=== PATIENT | male | born 1935 | race Caucasian/White ===

== ENCOUNTER 2016-09-14 06:37 | Outpatient (CLI) | payer MEDICARE, OTHER ==
[~2016-09-14] VITALS: Ht 185.4 cm; Wt 113.5 kg
[2016-09-14] MEDS ORDERED: OCUVITE TABLET1 TA1 PO (07:35)
[2016-09-14] MEDS ORDERED: PRAVASTATIN SOD10 MG PO (07:35)
[2016-09-14] MEDS ORDERED: FIBERCON625 MG PO (07:35)
[2016-09-14] MEDS ORDERED: NORVASC5 MG PO (07:35)
[2016-09-14] MEDS ORDERED: FLOMAX0.4 MG PO (07:36)
[2016-09-14] MEDS ORDERED: PROAIR HFA8.5 GM INH (07:36)
[2016-09-14 07:40] LABS: BASOPHILS 0.2 % (0-2); EOSINOPHILS 5.3 % (0-7); HEMATOCRIT 31.7 % (42.0-54.0); HEMOGLOBIN 10.3 g/dL (13.5-17.5); IMMATURE GRANULOCYTES 0.2 % (0-5); LYMPHOCYTES 21.7 % (15-50); MCH 29.9 pg (26.0-34.0); MCHC 32.5 g/dL (31.0-37.0); MCV 92.2 fL (80.0-100.0); MEAN PLATELET VOLUME 10.5 fL (7.4-10.4); MONOCYTES 6.8 % (2-11); NEUTROPHILS 65.8 % (40-80); PLATELET COUNT 222 10x3/uL (130-400); RBC 3.44 10x6/uL (4.20-6.10); RDW 13.1 % (11.5-14.5); WBC 8.7 10x3/uL (4.8-10.8)
[2016-09-14 07:41] VITALS: BP 139/74; BMI 33.0
[2016-09-14 07:49] LABS: ANION GAP 16.6 mmol/L (8-16); CALCIUM 8.3 mg/dL (8.5-10.1); CARBON DIOXIDE 23.7 mmol/L (21.0-32.0); CREATININE - SERUM 3.2 mg/dL (0.6-1.3); POTASSIUM - SERUM 4.3 mmol/L (3.5-5.1)
[2016-09-14 07:50] LABS: APTT 29.1 SECONDS (22.8-39.4); INR 1.15 (0.85-1.17); PROTIME 14.6 SECONDS (11.6-15.0)
--- NOTE | 2016-09-14 10:26 | NUR ---
TRANSFER FROM SPECIALS BY BED. VS WNL. DRSG TO RIGHT SIDE BACK CLEAN AND DRY. WILL CONT. PLAN OF CARE.
[2016-09-14 11:08] VITALS: BP 125/77; Ht 185.4 cm; Wt 113.5 kg
--- NOTE | 2016-09-14 14:12 | NUR ---
UP TO CHAIR. AT BS. CALL LIGHT IN REACH. WILL CONT. PLAN OF CARE.
[2016-09-14 15:13] VITALS: BP 116/68
[2016-09-14 19:00] VITALS: BP 134/70; BP 169/84
--- NOTE | 2016-09-14 19:56 | NUR ---
RESUMED CARE OF PT, LYING IN BED RESPIRATIONS EVEN AND UNLABORED ON ROOM AIR. RIGHT HAND SALINE LOCKED. AT BEDSIDE. URINE RACKED IN WINDOWSIL. LAST VOID CLEAR YELLOW. RIGHT BIOPSY SITE, C/D/I. NO NEEDS VOICED AT THIS TIME, CALL LIGHT IN REACH. WILL CONTINUE TO MONITOR. SEE NURSE ASSESSMENT.
[2016-09-15 05:20] LABS: BASOPHILS 0.4 % (0-2); EOSINOPHILS 7.1 % (0-7); HEMATOCRIT 27.7 % (42.0-54.0); IMMATURE GRANULOCYTES 0.4 % (0-5); LYMPHOCYTES 22.5 % (15-50); MCH 30.2 pg (26.0-34.0); MCHC 32.5 g/dL (31.0-37.0); MEAN PLATELET VOLUME 10.3 fL (7.4-10.4); MONOCYTES 7.3 % (2-11); NEUTROPHILS 62.3 % (40-80); PLATELET COUNT 194 10x3/uL (130-400); RBC 2.98 10x6/uL (4.20-6.10); RDW 13.3 % (11.5-14.5); WBC 7.9 10x3/uL (4.8-10.8)
[2016-09-15 05:35] LABS: ANION GAP 14.6 mmol/L (8-16); CARBON DIOXIDE 24.3 mmol/L (21.0-32.0); CREATININE - SERUM 3.4 mg/dL (0.6-1.3); POTASSIUM - SERUM 3.9 mmol/L (3.5-5.1)
[2016-09-15 08:17] VITALS: BP 145/56
--- NOTE | 2016-09-15 11:00 | NUR ---
IV AND TELEMETRY DCD. DC PLANS GIVEN. UNDERSTANDING VOICED. ESCORTED TO CAR BY W/C.
== END 2016-09-15 11:00 | disposition home or self-care (01) ==
LOC: D.M2 06:37 → D.OPS 06:37 → D.RAD 09:00 → D.OPS 09:00 → D.M2 10:13 → D.OPS 09-15 11:00
PROVIDERS: Internal Medicine; Radiology Diagnostic Radiology
DX: J90 Pleural effusion, not elsewhere classified (principal); N12 Tubulo-interstitial nephritis, not specified as acute or chronic; N26.9 Renal sclerosis, unspecified; I12.9 Hypertensive chronic kidney disease with stage 1 through stage 4 chronic kidney disease, or unspecified chronic kidney disease; N18.9 Chronic kidney disease, unspecified; N17.9 Acute kidney failure, unspecified

== ENCOUNTER 2020-07-14 14:44 | Inpatient (IN) | payer MEDICARE, OTHER ==
[~2020-07-14] VITALS: Ht 185.4 cm; Wt 95.3 kg
[~2020-07-14 14:44] MED LIST: FIBERCON625 MG PO; FLOMAX0.4 MG PO; NORVASC5 MG PO; OCUVITE TABLET1 TA1 PO; PRAVASTATIN SOD10 MG PO; PROAIR HFA8.5 GM INH
--- NOTE | 2020-07-14 18:21 | NUR ---
PATIENT ARRIVED VIA AMBULANCE FROM [facility]. LIFENET STATED RIDE WAS ROUGH. RESP ARE SHALLOW WITH A COUGH LUNG SOUNDS WET BILATERALLY THROUGHOUT. HEART SOUNDS REGULAR RATE AND RYTHYM AT THIS TIME. BOWEL MOVEMENT ON ARRIVAL. REDDNESS NOTED TO BUTTOCKS WITH NO BREAKS, BARRIER CREAM APPLIED. DRY SKIN TO BIALTERAL FEET AND TOES AROUND THE HEALS AND GREAT TOE. BILATERAL LEG INCISIONS OLD AND HEALED TO CALVES. SCATTERED BRUISING TO ARMS. AND BRUISING TO RIGHT SHOULDER WHERE DIALYSIS PORT ATTEMPTED. TRIALYSIS TO RIGHT GROIN. IV TO RIGHT FORE ARM PATENT AND SALINE LOCKED. NEPHRO CONTACTED FOR FUTHER ORDERS.
[2020-07-14 19:18] LABS: INR 1.48 (0.85-1.17); PROTIME 16.6 SECONDS (11.6-15.0)
[2020-07-14 19:24] LABS: BASOPHILS 0.3 % (0-2); EOSINOPHILS 0 % (0-7); HEMATOCRIT 23.8 % (42.0-54.0); HEMOGLOBIN 7.7 g/dL (13.5-17.5); LYMPHOCYTES 2.6 % (15-50); MCH 27.9 pg (26.0-34.0); MCHC 32.2 g/dL (31.0-37.0); MCV 86.5 fL (80.0-100.0); MEAN PLATELET VOLUME 8.9 fL (7.4-10.4); MONOCYTES 2.7 % (2-11); NEUTROPHILS 94.4 % (40-80); PLATELET COUNT 197 10x3/uL (130-400); RBC 2.75 10x6/uL (4.20-6.10); RDW 16.6 % (11.5-14.5); WBC 13.5 10x3/uL (4.8-10.8)
[2020-07-14 21:04] VITALS: BP 147/69
[2020-07-14] MEDS ORDERED: ELIQUIS2.5 MG PO (22:04)
[2020-07-14] MEDS ORDERED: METOPROLOL TART50 MG PO (22:05)
[2020-07-14] MEDS ORDERED: DILTIAZEM 24HR180 M4 PO (22:06)
[2020-07-14] MEDS ORDERED: BUMEX2 MG (22:06)
[2020-07-14] MEDS ORDERED: METOLAZONE5 MG PO (22:07)
--- NOTE | 2020-07-14 23:23 | NUR ---
REPORT RECEIVED. CARE RESUMED BY THIS NURSE AT 2230. PT A&O, UP IN BED. AUDIBLE GARGLING LUNG SOUNDS HEARD UPON ENTERING THE PTS ROOM. PAGED RENAL, SPOKE WITH DR. HEAD. ORDERS RECEIVED FOR ONE TIME DOSE OF LASIX AND BIPAP. RR EVEN AND UNLABORED NOW WITH BIPAP ON. O2 SAT 98% WITH BIPAP. IV TO R FA SL. TRIALYSIS TO R GROIN FOR DIALYSIS ACCESS. TUNNELLED DIALYSIS CATHETER PLACEMENT PROCEDURE SCHEDULED FOR TOMORROW. DR. HEAD STATED THAT PT WOULD GO TO DIALYSIS AFTER PROCEDURE. CONSULT WITH DR. COLLINS IN THE AM ORDERED. BED LOCKED AND LOWERED, CL IN REACH. ASSESSMENT COMPLETE. WILL CONT TO MONITOR.
--- NOTE | 2020-07-14 23:55 | NUR ---
PT REFUSING TO KEEP BIPAP ON. STATED IT SUFFOCATES HIM. ATTEMPTED TO REPOSITION AND EDUCATED THE PT ABOUT THE USE OF BIPAP WITH HIS CONDITION. PT STATED HE DID NOT WANT TO WEAR IT. STATED HE WOULD WEAR HIS O2 NC. EDUCATED PT ONCE AGAIN. PT CONT TO REFUSE BIPAP.
[2020-07-15] VITALS (8 sets, daily range): BP systolic 71–147; BP diastolic 45–95; Ht 185.4 cm; Wt 95.3 kg
--- NOTE | 2020-07-15 00:24 | NUR ---
NO TELE BOXES ARE CURRENTLY AVAILABLE. NURSING PROTOCOL IN PLACE TO REASSESS PTS WITH TELE. WILL APPLY TELE TO PT WHEN TELE BOX BECOMES AVAILABLE.
--- NOTE | 2020-07-15 05:00 | NUR ---
BRIGHT RED BLOOD FOUND IN PTS STOOL. UNABLE TO OBTAIN SAMPLE. ORDER PLACED FOR OCCULT BLOOD STOOL.
[2020-07-15 06:25] LABS: HEMATOCRIT 25.3 % (42.0-54.0); HEMOGLOBIN 8.2 g/dL (13.5-17.5); MCH 28.2 pg (26.0-34.0); MCHC 32.4 g/dL (31.0-37.0); MCV 86.9 fL (80.0-100.0); MEAN PLATELET VOLUME 8.9 fL (7.4-10.4); PLATELET COUNT 225 10x3/uL (130-400); RBC 2.91 10x6/uL (4.20-6.10); RDW 16.6 % (11.5-14.5); WBC 13.6 10x3/uL (4.8-10.8)
[2020-07-15 06:43] LABS: ANION GAP 16.5 mmol/L (8-16); CALCIUM 9.3 mg/dL (8.5-10.1); CARBON DIOXIDE 24.2 mmol/L (21.0-32.0); CREATININE - SERUM 4.5 mg/dL (0.6-1.3); PHOSPHOROUS 3.2 mg/dL (2.5-4.9); POTASSIUM - SERUM 3.7 mmol/L (3.5-5.1)
--- NOTE | 2020-07-15 07:38 | NUR ---
[employer] Engineer Xavier called [facility], Dr. Huerta aware, pt will have emergency dialysis this AM
--- NOTE | 2020-07-15 07:44 | NUR ---
Off unit for dialysis
[2020-07-15 08:16] LABS: % SATURATION 25 % (15-55); IRON 38 ug/dl (35-150); TOTAL IRON BIND CAPACITY 152 ug/dl (260-445); UNSAT IRON BIND CAPACITY 114 ug/dl (150-375)
[2020-07-15 11:19] LABS: EOSINOPHILS 3 % (0-7); LYMPHOCYTES 10 % (15-50); MONOCYTES 10 % (2-11); NEUTROPHILS 74 % (40-80); PLATELET ESTIMATE NORMAL
--- NOTE | 2020-07-15 11:33 | NUR ---
Dialysis reports taking off 4 liters of fluid.
--- NOTE | 2020-07-15 11:50 | NUR ---
Back from dialysis, pt unresponsive to verbal stimulus, only responds to tactile stimulus.
--- NOTE | 2020-07-15 12:35 | NUR ---
Off unit for procedure.
[2020-07-15 13:36] LABS: ANION GAP 16.1 mmol/L (8-16); CALCIUM 8.7 mg/dL (8.5-10.1); CARBON DIOXIDE 26.4 mmol/L (21.0-32.0); CREATININE - SERUM 3.4 mg/dL (0.6-1.3); POTASSIUM - SERUM 3.5 mmol/L (3.5-5.1)
[2020-07-15 14:07] LABS: BASOPHILS 0.1 % (0-2); EOSINOPHILS 0 % (0-7); HEMATOCRIT 28.7 % (42.0-54.0); MCH 27.7 pg (26.0-34.0); MCHC 31.5 g/dL (31.0-37.0); MCV 87.9 fL (80.0-100.0); MEAN PLATELET VOLUME 8.7 fL (7.4-10.4); MONOCYTES 1.7 % (2-11); NEUTROPHILS 95.2 % (40-80); PLATELET COUNT 249 10x3/uL (130-400); RBC 3.26 10x6/uL (4.20-6.10); RDW 16.6 % (11.5-14.5)
[2020-07-15 14:13] LABS: WBC 19.6 10x3/uL (4.8-10.8)
[2020-07-15 14:42] LABS: ALBUMIN 2.9 g/dL (3.4-5.0); BILIRUBIN - TOTAL 0.92 mg/dL (0.2-1.3); CALCIUM 8.8 mg/dL (8.5-10.1); CARBON DIOXIDE 24.8 mmol/L (21.0-32.0); CREATININE - SERUM 3.5 mg/dL (0.6-1.3); POTASSIUM - SERUM 3.8 mmol/L (3.5-5.1); PROTEIN - SERUM 6.2 g/dL (6.4-8.2)
--- NOTE | 2020-07-15 14:45 | NUR ---
vd notice pt sent from surgery to ICU, provided report to ICU at this time.
--- NOTE | 2020-07-15 19:00 | NUR ---
RECEIVED REPORT ON PT. AT 1746 PAM LINDA WAS CALLED ON PT, SEE CODE BLUE SHEET FOR DETAILS. ATTEMPTS TO REVIVE PT WERE UNSUCCESSFUL. DR PELLETIER PRONOUCED PT AT 1853. MACKENZIE WAS NOTIFIED OF AT 1907. REGISTERED RADIOLOGIC TECHNOLOGIST WAS NOTIFIED OF AT 1910 DUE TO PT WITHIN 24 HOURS OF ADMISSION. FAMILY WAS PRESENT WHEN CODE WAS INITIATED AND WAS NOTIFIED OF PT PASSING BY TJ MONTOYA APN, AND DR PELLETIER. AWAITING REGISTERED RADIOLOGIC TECHNOLOGIST CALL BACK AT THIS TIME.
== END 2020-07-16 01:03 | DRG 871 ==
LOC: D.M2 14:44 → D.ICU 18:17 → D.M2 18:17 → D.ICU 07-15 13:51
PROVIDERS: Anesthesiology; Internal Medicine Nephrology; Internal Medicine Pulmonary Disease; ADMIT Internal Medicine Nephrology; ATTEND Internal Medicine Nephrology
PROC: 0BH17EZ Insertion of Endotracheal Airway into Trachea, Via Natural or Artificial Opening (ICD-10-PCS; principal; 2020-07-15)
PROC: 5A1935Z Respiratory Ventilation, Less than 24 Consecutive Hours (ICD-10-PCS; 2020-07-15)
DX: A41.9 Sepsis, unspecified organism (principal); N18.6 End stage renal disease; J96.01 Acute respiratory failure with hypoxia; J69.0 Pneumonitis due to inhalation of food and vomit; G93.41 Metabolic encephalopathy; I13.2 Hypertensive heart and chronic kidney disease with heart failure and with stage 5 chronic kidney disease, or end stage renal disease; N25.81 Secondary hyperparathyroidism of renal origin; I48.20 Chronic atrial fibrillation, unspecified; I50.9 Heart failure, unspecified; Z99.2 Dependence on renal dialysis; I25.10 Atherosclerotic heart disease of native coronary artery without angina pectoris; J44.9 Chronic obstructive pulmonary disease, unspecified; D63.1 Anemia in chronic kidney disease; I48.91 Unspecified atrial fibrillation; K80.20 Calculus of gallbladder without cholecystitis without obstruction; W19.XXXA Unspecified fall, initial encounter; Z79.01 Long term (current) use of anticoagulants